=== PATIENT | female | born 1995 | race Caucasian/White ===

== ENCOUNTER 2017-03-06 22:03 | Emergency (ER) | payer OTHER ==
[~2017-03-06] VITALS: Ht 172.7 cm; Wt 65.8 kg
--- NOTE | 2017-03-06 22:10 | NUR ---
PATIENT WALKED INTO ER C/O RIGHT SHOULDER PAIN. PATIENT STATES WHILE WALKING HER DOG HOLDING HER DOG LEASH FELL AND INJURIED RIGHT SHOULDER ABOUT 1HR PRIOR TO ARRIVAL. PATIENT CAPILLARY REFILL ON RIGHT HAND LESS THAN 3 SECOND. PATIENT ABLE TO DIRECT SUPPORT STAFF ON INJURIED ARM
[2017-03-06] MEDS ORDERED: ESCI5TAB PO (22:12)
--- NOTE | 2017-03-06 22:49 | NUR ---
Dr Bryant spoke with Dr Zamarripa for consult
[2017-03-06] MEDS ORDERED: PROMETHAZINE HCL 25 MG/1 ML VIAL IM ONE (23:00)
[2017-03-06] MEDS ORDERED: HYDROMORPHONE 1 MG/1 ML DISP.SYRIN IM ONE (23:00)
[2017-03-06] MEDS ORDERED: HYDROMORPHONE 2 MG/1 ML DISP.SYRIN ONE (23:06)
[2017-03-06] MEDS ORDERED: PROMETHAZINE HCL 25 MG/1 ML VIAL ONE (23:07)
--- NOTE | 2017-03-06 23:54 | NUR ---
Patient discharged to home in stable conditon WITH BOYFRIEND TAKING PATIENT HOME. Written and verbal after care instructions given. Patient verbalizes understanding of instructions. STAFF PLACED PATIENT IN WHEELCAHIR TO BE ASSISTED TO PRIVATE VEHICLE DRIVEN BY BOYFRIEND
[2017-03-06 23:55] VITALS: BP 122/68
== END 2017-03-06 23:56 | disposition home or self-care (01) ==
LOC: ER 22:04
DX: S42.341A Displaced spiral fracture of shaft of humerus, right arm, initial encounter for closed fracture (principal); W18.30XA Fall on same level, unspecified, initial encounter; Y93.89 Activity, other specified; Y92.89 Other specified places as the place of occurrence of the external cause; Y99.8 Other external cause status
CPT/HCPCS: 73030; A4663; J1170; J2550; J7030